=== PATIENT | female | born 1955 | race African-American/Black ===

== ENCOUNTER → 2018-06-11 10:52 | Outpatient (CLI) | payer MEDICARE, BC, SELFPAY ==
--- NOTE | 2018-06-11 | IMM_PTH ---
PATIENT: MARGARITO MEAD LOC: [facility] U#:[id number] AGE/SX: 70/F ROOM: RE06/11/[address]: Dr. Maria G Rodriguez MD : 1955 BED: DIS: SPEC #: [id number] RECD: 06/13/18 09:52 STATUS: SRINIVASAN REQ #: [id number] LEYDA: 06/11/18 00:[address]: Maria G Rodriguez DEPT: IMMUNOHISTOCHEMISTRY RECD BY: Chely Agarwal ENTERED: 06/13/18 09:56 SP TYPE: IMMUNO OTHR DR: Dr. Sean Guido DO Tissues: Right breast, NOS Procedures: Calponin-1(initial) P40 (add) PHYSICIAN & INSTITUTION [place] [address] SPECIMEN INFORMATION: Tissue Source: Right breast Clinical Info: Bright breast calcifications 12 o'clock middle depth Specimen Number: [id number] #1 CPT code: 66749, 64973 METHODOLOGY: Deparaffinized sections of prefer/formalin-fixed tissue or PAP/DQ stained slides are incubated with monoclonal/polyclonal antibodies/oligonucleotide probes. Localization is made via biotin free immunoperoxidase method. Appropriate controls are performed and reacted as expected. Results on target cell population are indicated in the following table: RESULTS: ANTIBODY / CLONE RESULT Block 1 P40 (BC28) positive Calponin-1 (VY738L) positive These tests were developed and their performance characteristics determined by [facility]. They may not have been cleared or approved by the [place]. Food and Drug Administration. The FDA has determined that such clearance or approval is not necessary. INTERPRETATION: Right breast, stereotactic core biopsy with mammotome: Negative for malignancy. SJ:marian 06/13/18
--- NOTE | 2018-06-11 | BRBX_PTH ---
PATIENT: MARGARITO MEAD LOC: [facility] U#:[id number] AGE/SX: 70/F ROOM: RE06/11/[address]: Dr. Maria G Rodriguez MD : 1955 BED: DIS: SPEC #: [id number] RECD: 06/11/18 13:46 STATUS: SRINIVASAN RE #: [id number] LEYDA: 06/11/18 00:[address]: Maria G Rodriguez DEPT: SURGICAL PATHOLOGY RECD BY: Davey Sharp ENTERED: 06/11/18 13:46 SP TYPE: BREAST BX AMILCAR DR: Dr. Sean Guido DO Tissues: Right breast, NOS Procedures: Surgery Specimen Level IV HEADER OPERATION: Right breast stereotactic biopsy with mammotome PRE-OP DIAGNOSIS: Right breast calcifications 12 o'clock middle depth TISSUE SUBMITTED: Right breast core tissue ISCHEMIC TIME: 1 minute FIXATION TIME: 8 hours MICROSCOPIC DIAGNOSIS Right breast, stereotactic core biopsy with mammotome: Fibrocystic changes, adenosis and intraductal hyperplasia without atypia. Focal microcalcification and vascular calcification blood vessel wall. Negative for malignancy. SIM:marian 06/12/18 COMMENT Immunohistochemistry (RF18-) supports the above diagnosis. Multiple levels are examined. Correlation with clinical, radiologic findings and appropriate follow up are necessary. MICROSCOPIC DESCRIPTION Slides are reviewed. GROSS DESCRIPTION Received is one container labeled with the patient's name and not further designated. The specimen consists of multiple elongated fragments of rawls-yellow fibroadipose tissue that in aggregate measure 5 x 3 x 0.3 cm. The entire specimen is submitted in two cassettes. / SIM:marian 06/11/18 TC:5 CPT: 06194
--- NOTE | 2018-06-24 12:48 | PCM.OPRPT ---
Report of Operation Date of Procedure: 06/11/18 Pre-Operative Diagnosis: abnormal calcifications on right breast mammograms Post-Operative Diagnosis: same Surgery/Procedure Performed:: right stereotactic breast biopsy Description of Surgical Findings:: abnormal calcifications of right breast mammograms- centrally located Type of Anesthesia:: Local - 1% xylocaine Specimen's removed: right breast tissue Estimated Blood Loss (mL): < 1 Fluids Replaced: none Description of Procedure: After informed consent was given, the patient was brought into the breast biopsy suite. Appropriate time out protocol was followed. She was then placed in the prone position on the stereotactic biopsy table. The patient?s right breast was then placed within the opening at the head of the table. A php magento developer compression mammogram was then obtained in the CC view. The suspicious radiological lesion was then identified. Stereo pictures of the lesion were then taken for XYZ coordinates. The Mammotome biopsy stylus was then positioned where it would be entering into the patient?s breast. The skin at this site was then cleansed with a surgical skin preparation. The skin and subcutaneous tissues at this site were then infiltrated with 1% xylocaine. A small skin incision was made with an 11 blade scalpel. The biopsy stylus was then positioned into the patient?s breast at the proper coordinates of depth. Using the Mammotome vacuum-assist device, several core samples of breast tissue were obtained. A specimen mammogram was the obtained and revealed that the calcifications were within the specimen. A hemostatic marker clip was then placed into the biopsy cavity and a php magento developer film revealed that it was properly deployed. The patient was then placed in the supine position and pressure was applied to the breast until no active bleeding was noted. Steristrips were applied to reapproximate the skin. A unilateral mammogram in the CC and MLO view were then taken which revealed that the marker clip was in the same area as the previous suspicious lesion. The patient tolerated the procedure well and was discharged from the breast biopsy suite in good condition. - Complications none noted
== END ==
PROVIDERS: Family Provider Student in an Organized Health Care Education/Training Program; PCP Student in an Organized Health Care Education/Training Program; Referring Provider Surgery; Visit Provider Surgery
DX: R92.8 Other abnormal and inconclusive findings on diagnostic imaging of breast (principal); N60.21 Fibroadenosis of right breast; N60.91 Unspecified benign mammary dysplasia of right breast; J45.909 Unspecified asthma, uncomplicated; K21.9 Gastro-esophageal reflux disease without esophagitis; F41.9 Anxiety disorder, unspecified; Z79.899 Other long term (current) drug therapy; Z87.891 Personal history of nicotine dependence
CPT/HCPCS: 19081; 88305; 88341; 88342; J7050